=== PATIENT | female | born 1995 | race Caucasian/White ===

== ENCOUNTER 2020-12-27 11:39 | Outpatient (REF) | payer OTHER, SELFPAY | END 2020-12-27 11:40 | disposition home or self-care (01) | LOC: HO.MDS 11:39 | PROVIDERS: Visit Provider Internal Medicine Medical Oncology | DX: D50.9 Iron deficiency anemia, unspecified (principal) | CPT/HCPCS: 96365; J1439 ==

== ENCOUNTER 2021-01-01 14:09 | Outpatient (REF) | payer OTHER, SELFPAY | END 2021-01-01 14:10 | disposition home or self-care (01) | LOC: HO.MDS 14:09 | PROVIDERS: Visit Provider Internal Medicine Medical Oncology | DX: D50.9 Iron deficiency anemia, unspecified (principal) | CPT/HCPCS: 96365; J1439 ==

== ENCOUNTER → 2024-04-13 13:48 | Outpatient (RCR) | payer OTHER, SELFPAY ==
--- NOTE | 2020-12-26 15:21 | PM.HEMONCCN ---
Subjective - Subjective Chief complaint: Consult for iron deficiency anemia, in . Patient: new to practice Consult date: 12/26/20 Requesting Physician: Denisse Hyde Medical Summary: DIAGNOSIS: IRON DEFICIENCY ANEMIA. . HPI - Consult Narrative Reason for consult: Consult for: Iron deficiency anemia in . Narrative: viviane musa is a pleasant 25 year old lady who is at 33 weeks of gestation of her 1st . Her SETH is 02/08/2021. She was seen by her provider on 12/24. She complained of easy fatigability. She has related nausea and vomiting throughout her course. Hyperemesis gravidarum. Eating and drinking are mixed. Some days better than others. More difficulty keeping her food down. She has been taking famotidine, B6 and Unisom. Ultrasound: s=d, 31st percentile. She had labs drawn and was noted to be significantly anemic. Serial hemoglobin: 07/17/2020: 11.3. 09/19/2020: 10.3. 12/20/2020: 8.9. Hematocrit 28.5. MCV 72.7. PLT 463. WBC 8.6. She is Rh negative. She received RhoGAM at 28 weeks. ROS: Lately she has felt very tired. No fever nor chills. Appetite has not been that good. She lost 30 lb in the 1st trimester. She has gained half off the weight, back. No headache. Sometimes she feels lightheaded upon standing. Denies chest pain. Gets short of breath on exertion. Abdominal pain. She does get nausea and vomiting intermittently. She has heartburn for which she is on famotidine. Her bowels are working without any gross blood in it. : she has increased frequency of micturition. No joint pain muscle pain. No focal weakness. She does have a history of depression. No rashes/pruritus. Family history: No known family history of anemia. There is family history of anxiety and depression. Social history:. 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 This is her 1st . Denies smoking nor alcohol use. Review of Systems - Constitutional Reports system reviewed and no additional complaints, except as documented, Reports lack of energy, Reports weight gain - Eyes Reports system reviewed and no additional complaints, except as documented - ENT Reports system reviewed and no additional complaints, except as documented - Cardiovascular Reports system reviewed and no additional complaints, except as documented - Respiratory Reports no additional respiratory complaints - Gastrointestinal Reports system reviewed and no additional complaints, except as documented, Reports dyspepsia, Reports nausea, Reports vomiting - Genitourinary Reports no additional female genitourinary complaints - Musculoskeletal Reports system reviewed and no additional complaints, except as documented - Integumentary/Breasts Skin/Breast: Reports no additional skin complaints - Neurologic Reports system reviewed and no additional complaints, except as documented - Psychiatric Reports system reviewed and no additional complaints, except as documented - Endocrine Reports no additional endocrine complaints - Hematologic/Lymphatic Reports system reviewed and no additional complaints, except as documented - Allergic/Immunologic Reports system reviewed and no additional complaints, except as documented Oncology Screenings - ECOG Performance Status ECOG Performance Status: 0 PMFSH Medical History: Medical History (Last Updated 12/26/20 @ 14:12 by Makenna Barreto RN) Anemia Anxiety Depression Functional capacity: independent ambulation Patient : No Social History: Social History (Last Updated 12/26/20 @ 14:30 by Makenna Barreto RN) Substance Use History: Substance Use Type: Marijuana Home Medications and Allergies Home Medications Medication Instructions Recorded Confirmed Type bupropion HCl [Wellbutrin] 150 mg PO DAILY 12/26/20 12/26/20 History doxylamine succinate [Unisom 25 mg PO BEDTIME PRN 12/26/20 12/26/20 History (doxylamine)] doxylamine-pyridoxine (vit B6) 1 tab PO DAILY 12/26/20 12/26/20 History [Diclegis] famotidine 20 mg PO BID 12/26/20 12/26/20 History vitamin B6-vitamin E-magnesium tab PO 12/26/20 12/26/20 History Allergies Allergy/AdvReac Type Severity Reaction Status Date / Time No Known Allergies Allergy Verified 12/26/20 14:19 Physical Exam - Constitutional Present: no acute distress - Routine HEENT Exam Head: Present: normal inspection ENT: Present: mucous membranes moist - Routine Neck Exam Present: supple - Routine Respiratory Exam Present: CTAB - Routine Cardiovascular Exam Cardiovascular: Present: RRR, S1, S2 - Routine Abdominal Exam Present: soft, nontender - Routine Rectal Exam Patient deferred: digital exam - Routine Exam Perineum Description: Normal - Routine Extremities Exam Present: nontender - Routine Skin Exam Present: intact - Routine Neurological Exam Present: alert, oriented X3 - Detailed Neurological Exam: Coma Scale Eye Opening: Spontaneous (4) Verbal Response: Oriented (5) Motor Response: Obeys commands (6) Hector Coma Scale Total: 15 - Routine Psychiatric Exam Present: normal affect Hem/Onc Consult Result - Labs CBC & Chem 7: 12/26/20 16:05 12/26/20 16:05 Assessment and Plan (1) Maternal iron deficiency anemia affecting in third trimester, antepartum Status: Acute This is a pleasant 25-year-old lady who is at 33 weeks of gestation with her 1st . She has been noted to be rather Anemic. She has microcytic hypochromic indices. Hemoglobin 8.9 hematocrit 28 MCV 72. Platelets are 463. Thrombocytosis is related to anemia. PLAN: Will check labs including her iron studies and ferritin: /10/08. Will arrange for IV iron. Her SETH is rapidly approaching. Will give Injectofer, 750 mg x2, for a rapid response. She will return in a month for a follow-up visit. I wish stuff luck with her upcoming delivery. Thank you, CC: Denisse Hyde
[2020-12-26 15:31] VITALS: BP 111/71; PULSE 112; RESP 18; TEMP 36.4; O2SAT 100; BMI 24.0
--- NOTE | 2020-12-26 15:58 | MHC.HEMONC ---
Pt here for hem consult with Dr Parker. Clinical summary updated by nurse. Pt states she feels dyspneic and fatigued. Dr Parker into see pt. Blood drawn by delivery clerk, specimen to lab. Pt scheduled for Injectafer tomorrow in [facility] at 1200 awaiting PA. Pt instructed to arrive at 1130 for scheduled appointment. Discharged home
[2020-12-26 16:11] LABS: Basophils Percent Auto 0.4 % (0-2); Eosinophils Percent Auto 0.2 % (0-4); Hematocrit 28.3 % (37-47); Hemoglobin 8.6 g/dl (12.0-16.0); Imm Gran Abs Auto 0.09 X10*3/uL (0.00-0.03); Imm Gran Pct Auto 1.1 % (0.0-0.4); Lymphocytes Absolute Auto 1.5 X10*3/uL (1.2-4.9); MANUAL DIFF FLAG NO; Mean Corpuscular HGB Conc 30.4 g/dl (31.0-35.0); Mean Corpuscular Hemoglobin 22.3 pg (27.0-33.0); Mean Corpuscular Volume 73.3 fL (80-98); Mean Platelet Volume 9.3 fL (9.4-12.3); Monocytes Absolute Auto 0.6 X10*3/uL (0.1-1.2); Monocytes Percent Auto 7.4 % (2-11); NRBC Pct Auto 0.2 /100WBC (0.0-0.2); Neutrophils Absolute Auto 6.1 X10*3/uL (2.0-8.3); Neutrophils Percent Auto 72.9 % (45-73); Platelet Count 425 X10*3/uL (160-400); Red Blood Count 3.86 X10*6/uL (4.20-5.50); Red Cell Distribution Width 16.5 % (11.0-16.0); White Blood Count 8.3 X10*3/uL (4.8-10.8)
--- NOTE | 2020-12-26 16:27 | HO.HEMONCPA ---
NO PA REQUIRED FOR INJECTAFER PER [facility] REFERENCE [id number]. INFORMED LATOYA COELHO.
[2020-12-26 16:35] LABS: Alanine Aminotransferase 12 U/L (0-31); Albumin Level 3.6 g/dL (3.5-5.0); Alkaline Phosphatase 129 U/L (39-117); Anion Gap 14 (12-20); Aspartate Amino Transferase 16 U/L (5-31); Bilirubin Total 0.5 mg/dL (0.0-1.0); Blood Urea Nitrogen 4 mg/dL (9-16); Calcium 8.7 mg/dL (8.4-10.2); Carbon Dioxide 20 mmol/L (22-29); Chloride 106 mmol/L (96-108); Creatinine Clr Calc Pharmacy 150.9; Estimated Glomerular Filt Rate > 60; Glucose Random 93 mg/dL (60-115); Iron 19 mcg/dL (30-160); Sodium 136 mmol/L (135-145); Total Protein 6.5 g/dL (6.5-8.0)
[2020-12-26 16:53] LABS: Ferritin 2 ng/mL (10-122); Percent Iron Saturation 3 % (15-50); Total Iron Binding Capacity 626 mcg/dL (228-428); Unsaturated Iron Binding 607 ug/dL
== END | disposition home or self-care (01) ==
LOC: HO.ONC 12-26 15:13
PROVIDERS: Visit Provider Internal Medicine Medical Oncology
DX: O99.013 Anemia complicating pregnancy, third trimester (principal); D50.9 Iron deficiency anemia, unspecified; O99.113 Other diseases of the blood and blood-forming organs and certain disorders involving the immune mechanism complicating pregnancy, third trimester; D47.3 Essential (hemorrhagic) thrombocythemia; Z3A.33 33 weeks gestation of pregnancy
CPT/HCPCS: 36415; 80053; 82728; 83540; 85025; 99204